=== PATIENT | female | born 1990 | race Hispanic/Latino ===

== ENCOUNTER 2016-08-15 18:29 | Emergency (ER) | payer OTHER ==
[~2016-08-15] VITALS: Ht 144.8 cm; Wt 52.2 kg
[~2016-08-15 18:29] MED LIST: ADVAIR DISKU 11 UNIT INH; ALBUTEROL0.09 MG/A1 INH; AMOXICILLI400 MG/5 M PO; AMOXICILLIN500 M1 PO; AMOXIL500 MG PO; AUGMENTIN 875 M1 TAB PO; CIPRO 500MG TA500 MG PO; CIPROFLOXACIN500 MG PO; DICLEGIS DR 101 EACH PO; DIFLUCAN150 MG PO; FLEXERIL10 MG PO; IBU600 MG PO; IBUPROFEN800 M1 PO; KEFLEX500 MG PO; MACROBID 100 M100 MG PO; MACROBID100 MG PO; METROGEL0.751 VG; NAPROSYN 500 M500 MG PO; PRENATAL1 TA2 PO; PYRIDIUM100 MG PO; TYLENOL WITH C1 EACH PO; TYLENOL500 MG PO; VICODIN5-300 PO; VITAFOL-ONE CA1 EACH PO; ZOFRAN4 M1 SL
--- NOTE | 2016-08-15 19:12 | ED GI/GU/ABDOMINAL COMPLAINT ---
History of Present Illness General Chief Complaint: Female Urogenital Problems Stated Complaint: VAG DISCHARGE/BURNING WITH URINATION Source: patient, old records Exam Limitations: no limitations Vital Signs & Intake/Output Vital Signs & Intake/Output Vital Signs Date Time Temp Pulse Resp B/P Pulse O2 O2 Flow FiO2 Ox Delivery Rate 08/15 1952 98.7 88 20 110/77 98 Room Air 08/16 1835 98.2 95 20 104/68 97 Room Air Allergies Coded Allergies: shellfish derived (Severe, HIVES, TONGUE SWELLING 10/08/15) Sulfa (Sulfonamide Antibiotics) (HIVES 08/24/15) nystatin (HIVES 08/24/15) Reconcile Medications Cephalexin (Keflex) 500 MG CAPSULE 1 CAP PO TID UTI Ibuprofen 800 MG TABLET 1 TAB PO Q8H PRN pain Phenazopyridine HCl (Pyridium) 200 MG TABLET 1 TAB PO TID urinary tract Tylenol With Codeine (Tylenol With Codeine #3 Tablet) 300 MG-30 MG TABLET 1 TAB PO Q4-6 PRN PRN pain may cause drowsiness Valacyclovir HCl (Valacyclovir) 1,000 MG TABLET 1 TAB PO BID Triage Note: RECEIVED 25 YO FEMALE C/O BURNING WITH URINATION X ONE WEEK, WITH WHITISH VAGINAL DISCHARGE. PT ALSO NOTICED BLISTERS IN GENITAL AREA. PT C/O HEADACHE, WITH NAUSEA AND VOMITING INTERMITTENTLY. Triage Nurses Notes Reviewed? yes ? n Is pt currently ? No HPI: Patient is a 25-year-old female presents complaining of dysuria, vaginal discharge, vaginal pain 1 week. Patient reports she has had whitish discharge vaginally during this time. Pain is a burning sensation is moderate to severe. Patient's last menstrual period was 3 weeks ago and normal. Patient is sexually active, no condom use. Patient reports that she has been with her boyfriend for the past 3 years and has not had any other sexual partners during this time. Patient denies abdominal pain, fevers, chills. (RHONDA JOHNSON) Past History Travel History Traveled to [place] past 21 day No Medical History Any Pertinent Medical History? 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 No (RHONDA JOHNSON) Review of Systems Review of Systems Constitutional: Denies: chills, fever. EENTM: Reports: no symptoms. Respiratory: Denies: cough, short of breath. Cardiovascular: Denies: chest pain. GI: Denies: abdominal pain, nausea, vomiting. Genitourinary: Reports: see HPI, dysuria, pain. Musculoskeletal: Reports: no symptoms. Skin: Reports: lesions (PERIVAGINAL). Neurological/Psychological: Reports: no symptoms. Hematologic/Endocrine: Reports: no symptoms. Immunologic/Allergic: Reports: no symptoms. (RHONDA JOHNSON) Physical Exam Physical Exam General Appearance: well developed/nourished, alert, awake Head: atraumatic, normal appearance Eyes: Bilateral: normal appearance. Ears, Nose, Throat, Mouth: hearing grossly normal, moist mucous membrane Neck: normal inspection, supple, full range of motion Respiratory: no respiratory distress Gastrointestinal: normal bowel sounds, soft, non-tender Pelvic: with Dania RN present: clear drainage from the cervical os. 1 cm of erythema around the opening of the cervical os. No cervical motion tenderness. Perivaginal folliculitis. Superficial ulcerations periurethral with tenderness. Back: normal inspection, normal range of motion Extremities: normal range of motion Neurologic/Psych: no motor/sensory deficits, awake, alert, oriented x 3, normal gait, normal mood/affect Skin: perivaginal folliculitis. superficial ulcerations periurethral. Core Measures ACS in differential dx? No Severe Sepsis Present: No Septic Shock Present: No (RHONDA JOHNSON) Progress Differential Diagnosis: ectopic , intrauterine , PID/ cervicitis, UTI/pyelo Plan of Care: Orders Procedure Date/time Status Add-on Test (ER Only) 08/15 1925 Active TRICHOMONAS 08/16 1911 Complete POTASSIUM HYDROXIDE (SUSANNE) 08/16 1911 Complete GENITAL CULTURE 08/16 1911 Active CHLAMYDIA-GC DNA PROBE 08/16 1911 Active CULTURE,URINE 08/15 1906 Active URINE 08/15 1905 Complete URINALYSIS 08/15 1905 Complete Laboratory Tests 08/15/161906: Urinalysis LIGHT H, Urine Color YEL, Urine Clarity HAZY H, Urine pH 6.0, Ur Specific [place] 1.025, Urine Protein NEG, Urine Ketones NEG, Urine Nitrite NEG, Urine Bilirubin NEG, Urine Urobilinogen 0.2, Ur Leukocyte Esterase MOD H, Ur Microscopic SEDIMENT EXAMINED, Urine RBC RARE, Urine WBC 15-25 H, Ur Epithelial Cells MANY H, Urine Bacteria MOD H, Urine Mucus MOD H, Urine Hemoglobin TRACE -LYSED, Urine Glucose NEG, Urine Test NEGATIVE Microbiology 08/15 1924 GENITAL: GC DNA Probe - RECD 08/15 1924 GENITAL: Chlamydia DNA Probe (TIFFANIE) - RECD 08/15 1924 GENITAL: SUSANNE Preparation - COMP 08/15 1924 GENITAL: Trichomonas Preparation - COMP 08/15 1924 GENITAL: Genital Culture - RECD 08/15 1906 URINE ROUT: Urine Culture - RECD Periurethral small ulcerations possible HSV infection. No cervical motion tenderness on exam. Discussed results of urinalysis, wet prep and SUSANNE with patient. Patient instructed to follow up with her senior power scheduler for further evaluation. (RHONDA JOHNSON) Initial ED EKG: none (RHONDA JOHNSON) Departure Departure Time of Disposition: 1948 Disposition: HOME OR SELF CARE Condition: Stable Clinical Impression Primary Impression: Urinary tract infection Qualifiers: Urinary tract infection type: site unspecified Hematuria presence: without hematuria Qualified Code: N39.0 - Urinary tract infection, site not specified Secondary Impressions: Vaginal ulceration Referrals: PATIENT HAS NO PRIMARY CARE DR (PCP/Family) LENIN TOMPKINS,RUPERT Estrella Additional Instructions: Follow-up with your senior power scheduler within 1 week for further evaluation. You will be contacted if the results of your gonorrhea or chlamydia test are positive. No sexual intercourse until he follow-up with your senior power scheduler. Return to the emergency department if worsening of symptoms. Departure Forms: Customer Survey General Discharge Information Prescriptions: Current Visit Scripts Valacyclovir HCl (Valacyclovir) 1 TAB PO BID #14 TAB Cephalexin (Keflex) 1 CAP PO TID #21 CAP Phenazopyridine HCl (Pyridium) 1 TAB PO TID #6 TAB (RHONDA JOHNSON) PA/HAND FINISHER Co-Sign Statement Statement: ED Attending supervision documentation- [] I saw and evaluated the patient. I have also reviewed all the pertinent lab results and diagnostic results. I agree with the findings and the plan of care as documented in the RUDDY's/HAND FINISHER's documentation. [X] I have reviewed the ED Record and agree with the PA's/HAND FINISHER's documentation. [] Additions or exceptions (if any) to the PAs/HAND FINISHER's note and plan are summarized below: [] (YESSI TOMPKINS,MARTIN Medina)
[2016-08-15] MEDS ORDERED: VALTREX1000 MG PO (19:48)
[2016-08-15] MEDS ORDERED: KEFLEX500 M1 PO ×2 (19:48→19:49)
[2016-08-15] MEDS ORDERED: PYRIDIUM200 M1 PO (19:49)
[2016-08-15] MEDS ORDERED: VALACYCLOVIR1000 MG PO (19:49)
[2016-08-15 19:53] VITALS: BP 110/77
== END 2016-08-15 20:04 ==
LOC: ERH 18:29
DX: N39.0 Urinary tract infection, site not specified (principal); N76.5 Ulceration of vagina
CPT/HCPCS: 87070; 81001; 81025; 87086; 87147; 87491; 87591

== ENCOUNTER 2016-09-15 14:22 | Emergency (ER) | payer OTHER ==
[~2016-09-15] VITALS: Ht 144.8 cm; Wt 47.6 kg
[~2016-09-15 14:22] MED LIST changes: +KEFLEX500 M1 PO; +PYRIDIUM200 M1 PO; +VALACYCLOVIR1000 MG PO; +VALTREX1000 MG PO
--- NOTE | 2016-09-15 15:42 | ED GI/GU/ABDOMINAL COMPLAINT ---
History of Present Illness General Chief Complaint: Nausea, Vomiting, Diarrhea Stated Complaint: VOMTING X 1DAY Source: patient Exam Limitations: no limitations Vital Signs & Intake/Output Vital Signs & Intake/Output Vital Signs Date Time Temp Pulse Resp B/P B/P Pulse O2 O2 Flow FiO2 Mean Ox Delivery Rate 09/16 2127 97.3 82 18 110/68 97 Room Air 09/15 1925 96.9 75 20 104/67 100 Room Air 09/15 1630 Room Air 09/15 1439 97.9 96 18 103/73 98 Room Air ED Intake and Output 09/16 0000 09/15 1200 Intake Total 1000 Output Total Balance 1000 Intake, IV 1000 Patient 105 lb Weight Allergies Coded Allergies: shellfish derived (Severe, HIVES, TONGUE SWELLING 10/08/15) Sulfa (Sulfonamide Antibiotics) (HIVES 08/24/15) nystatin (HIVES 08/24/15) Reconcile Medications Fluoxetine HCl (Prozac) 20 MG CAPSULE 1 CAP PO QPM MENTAL HEALTH (Reported) Triage Note: COMPLAINS OF N/V AND HEADACHE SINCE LAST PM Triage Nurses Notes Reviewed? yes ? N Is pt currently ? No Onset: Abrupt Duration: day(s): (1) Timing: multiple episodes today Quality/Severity: moderate Location: right upper quadrant Radiation: no radiation Associated Symptoms: abdominal pain, nausea/vomiting HPI: 25 year old female presents to the ER with nausea, vomiting and ruq abdominal pain x 1 day. Subjective fevers at home. She has 2 sick children at home with similar symptoms. Denies any recent travel. She is 5 months delivery of a healthy 5-month-old girl. She did receive blood transfusion after delivery at the time. No other associated symptoms. (VICTOR M MARQUEZ MD) Past History Travel History Traveled to [place] past 21 day No Medical History Any Pertinent Medical History? 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 No (VICTOR M MARQUEZ MD) Review of Systems Review of Systems Constitutional: Reports: fever (SUBJECTIVE). Denies: chills. EENTM: Reports: no symptoms. Respiratory: Denies: cough. Cardiovascular: Reports: no symptoms. GI: Reports: abdominal pain, nausea, vomiting. Genitourinary: Reports: no symptoms. Musculoskeletal: Reports: no symptoms. Skin: Reports: no symptoms. Neurological/Psychological: Reports: no symptoms. Hematologic/Endocrine: Denies: bruising, bleeding, polyuria, polydipsia. Immunologic/Allergic: Denies: splenectomy. All Other Systems: Reviewed and Negative (VICTOR M MARQUEZ MD) Physical Exam Physical Exam General Appearance: well developed/nourished, alert, awake Head: atraumatic, normal appearance Eyes: Bilateral: normal appearance, PERRL, EOMI. Ears, Nose, Throat, Mouth: hearing grossly normal, moist mucous membrane Neck: normal inspection, supple, full range of motion Respiratory: normal breath sounds, chest non-tender, no respiratory distress Cardiovascular: regular rate/rhythm Peripheral Pulses: 2+ radial (R), 2+ radial (L) Gastrointestinal: normal bowel sounds, soft, tenderness (RUQ) Back: normal inspection, normal range of motion Extremities: normal range of motion, evidence of injury Neurologic/Psych: no motor/sensory deficits, awake, alert, oriented x 3 Core Measures ACS in differential dx? No Severe Sepsis Present: No Septic Shock Present: No (VICTOR M MARQUEZ MD) Progress Differential Diagnosis: biliary colic, cholecystitis, kidney stone, PUD/GERD, VIRAL SYNDROME, GASTROENTERITIS Plan of Care: Orders Procedure Date/time Status Add-on Test (ER Only) 09/16 2131 Active Add-on Test (ER Only) 09/15 1829 Active Add-on Test (ER Only) 09/15 1739 Active ACETOMINOPHEN 09/15 1640 Active MONOSPOT TEST 09/15 1640 Complete HEPATITIS PANEL 09/15 1640 Active URINALYSIS 09/15 1618 Complete LIPASE 09/15 1618 Active HUMAN BETA HCG SCREEN 09/15 1618 Active COMPREHENSIVE METABOLIC PANEL 09/15 1618 Active CBC WITHOUT DIFFERENTIAL 09/15 1618 Complete Laboratory Tests 09/15/16 1920: Urine Color YEL, Urine Clarity HAZY H, Urine pH 6.0, Ur Specific [place] 1.015, Urine Protein NEG, Urine Ketones 40 H, Urine Nitrite NEG, Urine Bilirubin NEG, Urine Urobilinogen 0.2, Ur Leukocyte Esterase NEG, Ur Microscopic SEDIMENT EXAMINED, Urine WBC 1-3 H, Ur Epithelial Cells MOD H, Urine Bacteria FEW H, Urine Mucus MOD H, Urine Hemoglobin NEG, Urine Glucose NEG 09/15/16 1640: Infectious [place] Titer NEGATIVE 09/15/16 1640: Anion Gap 13, Estimated GFR > 60, BUN/Creatinine Ratio 15.7, Glucose 80, Calcium 9.8, Total Bilirubin 0.8, AST 647 H, ALT 657 H, Alkaline Phosphatase 96, Total Protein 8.0, Albumin 4.6, Globulin 3.4, Albumin/Globulin Ratio 1.4, Lipase 29, Total Beta HCG NEGATIVE, CBC w Diff NO MAN DIFF REQ, RBC 4.93, MCV 79.1 L, MCH 25.8 L, RDW 18.5 H, MPV 8.8, Gran % 80.3 H, Lymphocytes % 12.8 L, Monocytes % 5.7, Eosinophils % 0.5, Basophils % 0.7, Absolute Granulocytes 8.3 H, Absolute Lymphocytes 1.3, Absolute Monocytes 0.6, Absolute Eosinophils 0.1, Absolute Basophils 0.1, PUBS MCHC 32.6 L, Hepatitis A IgM Ab Pending, Hep Bs Antigen Pending, Hep B Core IgM Ab Conf Pending, Hepatitis C Antibody Pending, Acetaminophen < 10.0 L Diagnostic Imaging: Viewed by Me: Ultrasound. Discussed w/RAD: Ultrasound. Radiology Impression: PATIENT: SADAF QUINTEROS PRESENT AGE: 25 PATIENT ACCOUNT NO: [id number] : 92 LOCATION: [facility] ORDERING PHYSICIAN: VICTOR M MARQUEZ MD SERVICE DATE: 09/15/16 EXAM TYPE: US - US- LIMITED ABDOMEN EXAMINATION: US ABDOMEN LIMITED CLINICAL INFORMATION: Elevated LFTs with pain. COMPARISON: None TECHNIQUE: Real-time imaging of the right upper quadrant abdominal viscera. FINDINGS: PANCREAS: Within normal limits. Liver also felt to be within normal limits. No lesion. No ductal dilatation. The gallbladder shows no stone or edema. Common duct is nondilated 3 mm. Right kidney is 9 cm. No hydronephrosis is seen. Kidney may be rotated. Ectopic Comparable to previous. IMPRESSION: No suspicious finding right upper quadrant ultrasound. No evidence for cholelithiasis or cholecystitis. No free fluid DICTATED BY: GAIL RIGGS MD DATE/TIME DICTATED:09/15/161845 GAS TECHNICIAN:ALLEN DATE/TIME TRANSCRIBED:09/15/161845 CONFIDENTIAL, DO NOT COPY WITHOUT APPROPRIATE AUTHORIZATION. <Electronically signed in Other Vendor System> SIGNED BY: GAIL RIGGS MD 09/15/161853 Initial ED EKG: none Hand-Off Endorsed To: GAIL PARKS DO Endorsed Time: 1902 Pending: other (TYLENOL LEVEL, UA) (VICTOR M MARQUEZ MD) Departure Departure Disposition: HOME OR SELF CARE Condition: Stable Clinical Impression Primary Impression: Abdominal pain Secondary Impressions: Transaminitis Referrals: OCTAVIANO TOMPKINS,NESHA Long Departure Forms: Customer Survey General Discharge Information (VICTOR M MARQUEZ MD) Departure Comments 09/15/16 9:31 PM The patient was signed out to me by Dr. Marquez. She has no complaints at this time. Abdomen is soft and nontender. She is 5 months. Ultrasound of the right upper quadrant was unremarkable. She did have elevated transaminases. Hepatitis profile is pending. We will give her Zofran for nausea. Monospot ordered. She will follow-up with a [facility] faculty practice doctor on Sunday or return to the emergency department if worse. She will call me in the emergency department on Sunday for the results of the hepatitis profile. (GAIL PARKS DO)
[2016-09-15] MEDS ORDERED: PROZAC20 M2 PO (16:45)
[2016-09-15 16:55] LABS: ABSOLUTE BASOPHIL COUNT 0.1 /CUMM (0.0-0.2); ABSOLUTE EOSINOPHIL COUNT 0.1 /CUMM (0.0-0.7); ABSOLUTE GRANULOCYTE CT 8.3 /CUMM (1.4-6.5); ABSOLUTE LYMPH COUNT 1.3 /CUMM (1.2-3.4); ABSOLUTE MONOCYTE COUNT 0.6 /CUMM (0.10-0.60); BASOPHIL % 0.7 % (0.0-2.0); EOSINOPHIL % 0.5 % (0-5); MEAN CORPUSCULAR HGB 25.8 PG (27.0-31.0); MEAN CORPUSCULAR HGB CONC 32.6 G/DL (33.0-37.0); MEAN CORPUSCULAR VOLUME 79.1 FL (81.0-99.0); MEAN PLATELET VOLUME 8.8 FL (7.4-10.4); PLATELET COUNT 340 /CUMM (130-400); RBC DISTRIBUTION WIDTH 18.5 % (11.5-14.5); RED BLOOD CELL CT 4.93 /CUMM (4.20-5.40); WHITE BLOOD CELL COUNT 10.3 /CUMM (4.8-10.8)
[2016-09-15 17:07] LABS: GRANULOCYTE % 80.3 % (42.2-75.2)
--- NOTE | 2016-09-15 18:54 | ULTRASOUND REPORT ---
EXAMINATION: US ABDOMEN LIMITED CLINICAL INFORMATION: Elevated LFTs with pain. COMPARISON: None TECHNIQUE: Real-time imaging of the right upper quadrant abdominal viscera. FINDINGS: PANCREAS: Within normal limits. Liver also felt to be within normal limits. No lesion. No ductal dilatation. The gallbladder shows no stone or edema. Common duct is nondilated 3 mm. Right kidney is 9 cm. No hydronephrosis is seen. Kidney may be rotated. Ectopic Comparable to previous. IMPRESSION: No suspicious finding right upper quadrant ultrasound. No evidence for cholelithiasis or cholecystitis. No free fluid
[2016-09-15 21:28] VITALS: BP 110/68
== END 2016-09-15 18:02 ==
LOC: ERH 14:22
PROVIDERS: Emergency Medicine
DX: R74.0 Nonspecific elevation of levels of transaminase and lactic acid dehydrogenase [LDH] (principal); R10.11 Right upper quadrant pain
CPT/HCPCS: 81001; 96374; 96375; G0480; J0131; J1885; J2405; J2765

== ENCOUNTER 2017-10-09 15:04 | Emergency (ER) | payer OTHER ==
[~2017-10-09] VITALS: Ht 142.2 cm; Wt 45.8 kg
[~2017-10-09 15:04] MED LIST changes: +PROZAC20 M2 PO
--- NOTE | 2017-10-09 16:27 | ED ANIMAL BITE/WOUND CHECK ---
History of Present Illness General Chief Complaint: General Adult Stated Complaint: BRIT CAT SCRATCH, ?HIV Source: patient Exam Limitations: no limitations Vital Signs & Intake/Output Vital Signs & Intake/Output Vital Signs Date Time Temp Pulse Resp B/P B/P Pulse O2 O2 Flow FiO2 Mean Ox Delivery Rate 10/09 1623 Room Air 10/09 1513 99.3 91 18 108/79 98 Room Air Allergies Coded Allergies: shellfish derived (Severe, HIVES, TONGUE SWELLING 10/08/15) Sulfa (Sulfonamide Antibiotics) (HIVES 08/24/15) nystatin (HIVES 08/24/15) Reconcile Medications Amoxicillin/Potassium Clav (Augmentin 875-125 Tablet) 875 MG-125 MG TABLET 1 TAB PO BID cat scratch Fluoxetine HCl (Prozac) 20 MG CAPSULE 1 CAP PO QPM MENTAL HEALTH (Reported) Triage Note: BRIT FROM HOME, STATES SHE WAS SCRATCHED BY FAMILY CAT, WHO ALSO SCRATCHED HER HIV POSITIVE BROTHER. WANTS TO BE CHECKED FOR HIV. Triage Nurses Notes Reviewed? yes Onset: Abrupt Duration: minute(s): Timing: single episode today Injury Environment: home Is Injury an Animal Bite? No Animal Type: cat Context of Animal Attack: unprovoked attack Appearance of Animal: appeared well Animal Immunization Status: unknown Observation/Capture: animal known/obs x10 days Severity of Attack: scratched Severity: mild : No Patient currently breastfeeds: No HPI: 26yo female BRIT to ED complaining of being scratched by the family cat prior to arrival. Patient states that her cat scratched her brother who is known +HIV and then scratched her immediately afterwards. Patient is worried about exposure to HIV. Patient reports scratches to her left leg with minor bleeding. She reports her cat is in good health and was acting normally otherwise. (Tabby Miranda) Past History Travel History Traveled to [place] past 21 day No Medical History Any Pertinent Medical History? 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 No (Tabby Miranda) Review of Systems Review of Systems Constitutional: Reports: no symptoms. EENTM: Reports: no symptoms. Respiratory: Reports: no symptoms. Cardiovascular: Reports: no symptoms. GI: Reports: no symptoms. Genitourinary: Reports: no symptoms. Musculoskeletal: Reports: no symptoms. Skin: Reports: see HPI. Neurological/Psychological: Reports: no symptoms. Hematologic/Endocrine: Reports: no symptoms. Immunologic/Allergic: Reports: no symptoms. All Other Systems: Reviewed and Negative (Tabby Miranda) Physical Exam Physical Exam General Appearance: well developed/nourished, no apparent distress, alert, awake Head: atraumatic, normal appearance Eyes: Bilateral: normal appearance. Ears, Nose, Throat: hearing grossly normal Neck: normal inspection, supple, full range of motion Respiratory: no respiratory distress Back: normal inspection, normal range of motion Extremities: normal range of motion, mild scratches to left lower leg without active bleeding Neurologic/Psych: awake, alert, oriented x 3 Skin: scratches to left lower leg (Tabby Miranda) Progress Differential Diagnosis: cellulitis, HIV exposure, cat scratch, rabies exposure Plan of Care: Orders Procedure Date/time Status HIV EXPOSURE/NEEDLESTICK 10/09 1701 Active HUMAN BETA HCG SCREEN 10/09 170 Active Laboratory Tests 10/09/17 1740: Total Beta HCG NEGATIVE, HIV 1&2 Antibody Pending Patient requests HIV testing. Lab sent to lab. I informed the patient that the risk of HIV transmission in this scenario is very low however I offered her PEP and gave her an information packed on PEP. After reading information on PEP patient elects to decline PEP. Patient instructed to return in 6 weeks for repeat HIV testing, she was given an outpatient lab slip. The patient agrees with this plan. The patient was discussed with Dr. Frost who agrees with plan of care. Patient started on Augment antibiotics given cat scratch. Low suspicion for rabies given family cat which is acting normal however patient instructed to continue to observe the animals behavior. (Tabby Miranda) Departure Departure Disposition: HOME OR SELF CARE Condition: Stable Clinical Impression Primary Impression: Cat scratch Secondary Impressions: HIV exposure Referrals: Patient Has No Primary Care Dr (PCP/Family) Additional Instructions: Take full course of antibiotics. Follow-up with your primary care doctor. Return for second HIV test in 6 weeks. Monitor for signs of redness, swelling, increasing pain around cat scratches, return if you have any of these symptoms or other concerns. Please note that there might be incidental findings in your evaluation that are unrelated to the current emergency department visit. Please notify your primary care doctor about this emergency department visit in order to obtain and review all of the testing performed so that these incidental findings can be monitored as needed. If you had an x-ray performed, please understand that some fractures may not be seen on the initial set of x-rays. If your symptoms persist you might need a repeat set of x-rays to check for such a fracture. If you had a laceration evaluated, please understand that foreign bodies such as glass or wood may not be visible to the naked eye or on plain x-rays. If the wound becomes red, swollen, increasingly more painful or if there is any drainage from the wound, please have it reevaluated by a physician for the possibility of a retained foreign body. If you're unable to follow up as outlined in the discharge instructions please return to the emergency department. Thank you for choosing the [facility] Emergency Department for your care. It was a pleasure to serve you today. Departure Forms: Customer Survey General Discharge Information Prescriptions: Current Visit Scripts Amoxicillin/Potassium Clav (Augmentin 875-125 Tablet) 1 TAB PO BID #20 TAB (Megan FOX,Tabby Yung) PA/METAL FABRICATING SUPERVISOR Co-Sign Statement Statement: ED Attending supervision documentation- [] I saw and evaluated the patient. I have also reviewed all the pertinent lab results and diagnostic results. I agree with the findings and the plan of care as documented in the PA's/METAL FABRICATING SUPERVISOR's documentation. [X] I have reviewed the ED Record and agree with the PA's/METAL FABRICATING SUPERVISOR's documentation. [] Additions or exceptions (if any) to the PAs/METAL FABRICATING SUPERVISOR's note and plan are summarized below: [] (Agustin Frost DO)
[2017-10-09] MEDS ORDERED: AUGMENTIN 875-1 EACH PO (18:54)
[2017-10-09 19:04] VITALS: BP 121/74
== END 2017-10-09 19:21 ==
LOC: ERH 15:04
DX: S80.812A Abrasion, left lower leg, initial encounter (principal); Z20.6 Contact with and (suspected) exposure to human immunodeficiency virus [HIV]; W55.03XA Scratched by cat, initial encounter; Y92.009 Unspecified place in unspecified non-institutional (private) residence as the place of occurrence of the external cause; Y93.9 Activity, unspecified
CPT/HCPCS: 87389